=== PATIENT | male | born 1960 | race Caucasian/White ===

== ENCOUNTER → 2023-12-10 09:03 | Outpatient (REF) | payer BC, SELFPAY ==
[2023-12-10 09:48] LABS: % Basophils 1.4 % (0-2); % Eosinophils 1.2 % (0-6); % Immature Granulocytes 0.7 % (0-0.5); % Lymphocytes 18.3 % (20.5-51.1); % Monocytes 11.1 % (1.7-9.3); % Neutrophils 67.3 % (42.2-75.2); Absolute Basophils 0.1 10^3/uL (0-0.2); Absolute Eosinophils 0.1 10^3/uL (0-0.7); Absolute Lymphocytes 0.8 10^3/uL (1.2-3.4); Absolute Monocytes 0.5 10^3/uL (0.1-0.6); Absolute Neutrophils 2.9 10^3/uL (1.4-6.5); Hemoglobin 10.4 g/dL (13.0-18.0); Mean Corp Hgb Conc. 35.9 g/dL (33.0-37.0); Mean Corpuscular Hgb 49.3 pg (27.0-31.0); Mean Corpuscular Volume 137.4 fL (80.0-94.0); Mean Platelet Volume 10.7 fL (7.4-10.4); Nucleated Red Blood Cells % 7.4 % (-); Platelet Count 215 10^3/uL (130-400); Red Blood Cell Count 2.11 10^6/uL (4.70-6.10); Red Cell Dist. Width 20.6 % (11.5-14.5); White Blood Cell Count 4.3 10^3/uL (4.8-10.8)
[2023-12-10 09:54] LABS: INR 1.19
[2023-12-10 10:05] VITALS: BP 122/84; BP_SYST 58
== END ==
LOC: RADI 09:03
PROVIDERS: ATTENDING PHYSICIAN Internal Medicine Hematology & Oncology
DX: D47.3 Essential (hemorrhagic) thrombocythemia (principal); Z01.812 Encounter for preprocedural laboratory examination; Z01.818 Encounter for other preprocedural examination
CPT/HCPCS: 88305; 88311; 88312; 36415; 38222; 77012; 85025; 85610; 88313

== ENCOUNTER → 2023-12-15 06:32 | Day surgery (SDC) | payer BC, SELFPAY | LOC: GI 06:32 | PROVIDERS: ATTENDING PHYSICIAN Internal Medicine | DX: C88.4 Extranodal marginal zone B-cell lymphoma of mucosa-associated lymphoid tissue [MALT-lymphoma] (principal); K51.919 Ulcerative colitis, unspecified with unspecified complications; K43.5 Parastomal hernia without obstruction or gangrene; I85.00 Esophageal varices without bleeding; K44.9 Diaphragmatic hernia without obstruction or gangrene; K31.89 Other diseases of stomach and duodenum; Z90.49 Acquired absence of other specified parts of digestive tract | CPT/HCPCS: 44386; 43239; 88305; 88341; 88342; 88365 ==

== ENCOUNTER → 2024-01-05 07:44 | Outpatient (REF) | payer BC, SELFPAY | LOC: RAD 07:44 | PROVIDERS: ATTENDING PHYSICIAN Surgery | DX: K43.5 Parastomal hernia without obstruction or gangrene (principal); R10.31 Right lower quadrant pain | CPT/HCPCS: 74177; Q9967 ==

== ENCOUNTER 2024-05-08 07:34 | Emergency (ER) | payer MEDICARE, BC, SELFPAY ==
[2024-05-08] VITALS (9 sets, daily range): BP systolic 124–142; BP diastolic 76–89; BMI 32.1
[2024-05-08 08:37] LABS: % Basophils 1.3 % (0-2); % Eosinophils 1.1 % (0-6); % Immature Granulocytes 1.1 % (0-0.5); % Lymphocytes 12.1 % (20.5-51.1); % Neutrophils 73.4 % (42.2-75.2); Absolute Basophils 0.1 10^3/uL (0-0.2); Absolute Eosinophils 0.1 10^3/uL (0-0.7); Absolute Immature Granulocytes 0.1 10^3/uL (0-0.05); Absolute Lymphocytes 0.9 10^3/uL (1.2-3.4); Absolute Monocytes 0.8 10^3/uL (0.1-0.6); Absolute Neutrophils 5.6 10^3/uL (1.4-6.5); Hematocrit 34.9 % (39.0-52.0); Hemoglobin 11.9 g/dL (13.0-18.0); Mean Corp Hgb Conc. 34.1 g/dL (33.0-37.0); Mean Corpuscular Volume 137.9 fL (80.0-94.0); Nucleated Red Blood Cells % 1.6 % (-); Platelet Count 305 10^3/uL (130-400); Red Blood Cell Count 2.53 10^6/uL (4.70-6.10); Red Cell Dist. Width 15.9 % (11.5-14.5); White Blood Cell Count 7.6 10^3/uL (4.8-10.8)
--- NOTE | 2024-05-08 08:38 | ED.GENMED ---
History of Present Illness
General
Chief Complaint: Male Genito-Urinary Symptoms
Source: patient
Exam Limitations: none
Time Seen by Provider: 05/08/24 08:26
History of Present Illness
History of Present Illness:
64-year-old male started with congestion as he describes it in his face and congestion in his lungs a week ago. Some mild cough. No fever. The last 2 days he has had an increase shortness of breath lying flat at night. Today he also noted some
dark urine that he thought was blood. Denies chest pain no abdominal pain no change in bowels no fever. No pleuritic pain. Patient has a very complicated history.
Past History
Past History
ED Past Medical History: Cancer, Other (Ulcerative colitis status post colectomy, DVT with [place] filter) and Other (DVT)
ED Past Surgical History: Bowel resection (Colectomy with ileostomy) and Other
Social History
Tobacco: Non-smoker
Alcohol: None
Drug: None
Personal: Single
Living: with family
Review of Systems
Review of Systems
All Other Systems: Not applicable
Constitutional: Denies fever or chills
Respiratory: Denies hemoptysis
Cardiac: Denies chest pain or syncope
ABD/GI: Denies abdominal pain, bloody stools or black stools
Phy Exam
Physical Exam
Physical Exam:
GENERAL: Alert and oriented in no apparent distress
EYE: Orbits normal.
NECK: Supple. Nasal congestion when speaking
CARDIAC: Regular rate and rhythm without any obvious murmurs.
LUNGS: No respiratory distress. A few crackles in the bases bilaterally. No wheezing or rhonchi
ABDOMEN: Soft, without focal tenderness or distention
NEUROLOGICAL: Alert and oriented , grossly non-focal
SKIN: Warm and dry, no rash or lesion, no discoloration, skin intact.
MUSCULOSKELETAL: Chronic edema bilaterally. Compression stockings in place
PSYCH: Normal and appropriate interaction.
Course
Orders/Labs/Results
Orders:
Orders
05/08/24 08:21
Complete Blood Count/With Diff Urgent
Comprehensive Metabolic Panel Urgent
Pro-BNP [NT-proBNP] Urgent
Urinalysis Reflex To Culture Urgent
Date Specimen was Collected: 05/08/24
Time Specimen was Collected: 07:48
Urine Microscopic Reflex Cult Urgent
05/08/24 08:28
CXR2 [CR Chest - 2 Views ] Urgent
Comment:
Reason For Exam: shortness of breath
05/08/24 08:49
COVID-19 Antigen Urgent
Source: Nasal Swab
Troponin I Urgent
Influenza A+B Rapid Molecular Urgent
KAMRAN Source: Nasal Swab
Specimen Description:
05/08/24 10:11
CT Abd/pel Without Iv Or Oral Urgent
Comment:
Reason For Exam: hematuria
05/08/24 11:51
Cefdinir [Omnicef] 300 mg PO NOW STA
Abnormal Lab Results
05/08/24
08:21
RBC 2.53 L 10^6/uL
(4.70-6.10)
Hgb 11.9 L g/dL
(13.0-18.0)
Hct 34.9 L %
(39.0-52.0)
MCV 137.9 H fL
(80.0-94.0)
MCH 47.0 H pg
(27.0-31.0)
RDW 15.9 H %
(11.5-14.5)
Abs Immat Gran (auto) 0.1 H 10^3/uL
(0-0.05)
Absolute Lymphs (auto) 0.9 L 10^3/uL
(1.2-3.4)
Absolute Monos (auto) 0.8 H 10^3/uL
(0.1-0.6)
Immature Gran % 1.1 H %
(0-0.5)
Lymphocytes % 12.1 L %
(20.5-51.1)
Monocytes % 11.0 H %
(1.7-9.3)
Carbon Dioxide 32 H mmol/L
(22-30)
Creatinine 1.6 H mg/dL
(0.7-1.3)
Glucose 206 H mg/dl
(70-99)
Urine Ketones Trace A
(Negative)
Ur Occult Blood Reflex 3+ A
(Negative)
Urine Bilirubin 1+ A
(Negative)
Leukocyte Esterase Rfl Trace A
(Negative)
Urine Bacteria (Reflex) Few A
(Negative)
Urine Albumin (Reflex) 2+ A
(Neg - Trace)
05/08/24 08:21
05/08/24 08:21
Vital Signs
Initial and Last Documented VS:
Initial Vital Signs
Temp Pulse Resp BP Pulse Ox
98.9 F 74 16 136/86 95
05/08/24 07:43 05/08/24 07:43 05/08/24 07:43 05/08/24 07:43 05/08/24 07:43
Last Documented Vital Signs
Temp Pulse Resp BP Pulse Ox
98.9 F 67 20 142/89 92
05/08/24 07:43 05/08/24 10:13 05/08/24 10:13 05/08/24 11:58 05/08/24 11:52
MDM/Problems Addressed
Differential Diagnosis Includes:
Patient describing 2 issues that brought him to the hospital ongoing congestion as he describes it with some shortness of breath at night worse with lying flat x 1 week and possible hematuria. At this time, I do not know that I can put these 2
issues together with 1 explanation. From a congestion standpoint would entertain infectious, heart failure. PE would be in the differential. Hematuria would include kidney stone although no pain infection renal vein or artery thrombosis with his
clotting issues. Workup in progress
*Radiology
Radiology exam reviewed: radiology read reviewed (No acute findings on chest x-ray or CT. Multiple incidental findings)
*Pulse Oximetry
Patient hypoxic: no
*Critical Care Note
Total Time (30-74mins, 75-104mins- exclusive of procedures): Not Applicable
Data Reviewed
Review of Other/Old Records Reveals: Labs, Records and Testing
Update Note
Update Note:
Patient with 2 issues that appear unrelated. Mild hematuria. Possible UTI. Few bacteria trace leukocyte. No other serious explanation found. Will cover with antibiotics. As for his respiratory symptoms clearly has nasal congestion. Likely a
viral URI. No pneumonia no heart failure. Pulmonary emboli is unlikely given the patient is on Eliquis although a lower dose, and has a filter. He also does not have continual symptoms of the shortness of breath he states is worse when he is
nasally congested. Discussed the risk benefit of a CT scan with his renal insufficiency. Given the low clinical suspicion, reasonable pulse ox lack of chest pain or pleuritic pain, filter and DOAC use, we will hold on CT scan. Again risk-benefit
was explained with the patient
ED Attending Note
-
Portions of this chart may have been created with voice recognition software.� Occasional wrong word or��sound alike� substitutions may have occurred due to the inherent limitations of voice recognition software.
Discharge Plan
Departure
Patient Disposition: Home (Routine Discharge)
Date of Disposition: 05/08/24
Time of Disposition: 11:53
Patient with high blood pressure during this ER visit?: Yes
Discharge Problem:
Dyspnea/URI, Renal insufficiency, Hematuria/possible UTI
Instructions: Blood in the Urine (Hematuria), Adult (DC), Shortness of breath in adults - ED discharge instructions, BLOOD PRESSURE
Prescriptions:
New
cefdinir 300 mg capsule
300 mg PO BID 7 Days Qty: 14 0RF
No Action
rosuvastatin 20 MG tablet
20 mg PO QPM
hydroxyurea 500 MG capsule
1,000 mg PO MOTUWETHFRSA@1999
nadolol 40 MG tablet
40 mg PO HS
amlodipine 5 MG tablet
5 mg PO HS
tamsulosin 0.4 MG capsule
0.4 mg PO HS
hydroxyurea 500 mg Capsule
500 mg PO MAURICIO@1999
Xarelto 20 mg Tablet
20 mg PO HS
Xiidra 5 % Dropperette
1 drp RIGHT EYE BID
pantoprazole 40 MG tablet,delayed release (DR/EC)
40 mg PO HS
dutasteride 0.5 MG capsule
0.5 mg PO HS
Cold and Flu Medicine 2-5-325 mg Tablet
2 tab PO DAILYPRN PRN (Reason: cold/cough )
cyanocobalamin (vitamin B-12) 1,000 mcg Tablet
1,000 mcg PO QPM
folic acid 1 mg Tablet
1 mg PO QPM
mesalamine 1,000 mg Suppository
1 g NV DAILYPRN PRN (Reason: inflammation of the rectum)
cholecalciferol (vitamin D3) [Vitamin D3] 50 mcg (2,000 unit) Tablet
50 mcg PO QPM
Eliquis 2.5 mg Tablet
2.5 mg PO BID
Referrals:
Mark García MD [Family Provider] - Follow up in 2-3 days
Activity Restrictions/Additional Instructions:
Follow-up closely with your primary physician and urologist
Please return immediately with worsening shortness of breath chest pain pleuritic pain or any other concerning symptoms
You were given a copy of your CT scan report for follow-up
Interventions
Interventions:
*Risk Screen - Suicide Last Done: 05/08/24 07:43
*General Assessment Last Done: 05/08/24 07:43
*Neglect/Abuse Screening Last Done: 05/08/24 07:43
ED- Fall Risk Assessment Last Done: 05/08/24 08:00
*ED COVID-19 Vaccine History Last Done: 05/08/24 08:00
*Nursing Disposition Last Done: 05/08/24 12:07
ED-Male Genitourinary Assessment Last Done: 05/08/24 08:00
Discharge Date and Time
Discharge Date/Time: 05/08/24 12:08
Print Language: PALAUAN
[2024-05-08 08:51] LABS: Urine Albumin 2+ (Neg - Trace); Urine Bilirubin 1+ (Negative); Urine Character Clear (Clear); Urine Color Yellow; Urine Glucose Negative (Negative); Urine Ketone Trace (Negative); Urine Leukocyte Trace (Negative); Urine Nitrite Negative (Negative); Urine Occult Blood 3+ (Negative); Urine Urobilinogen Negative (Neg - 1+)
[2024-05-08 08:58] LABS: NT-proBNP 194 pg/ml
[2024-05-08 09:01] LABS: ALT (SGPT) 15 U/L (0-50); AST (SGOT) 28 U/L (17-59); Albumin 3.8 g/dl (3.5-5.0); Alkaline Phosphatase 75 U/L (38-126); Blood Urea Nitrogen 20 mg/dl (9-20); Calcium 9.1 mg/dl (8.4-10.2); Carbon Dioxide 32 mmol/L (22-30); Chloride 101 mmol/L (98-107); Estimated Creatinine Clearance 62 ml/min; Glucose 206 mg/dl (70-99); Sodium 139 mmol/L (135-145); Total Bilirubin 0.6 mg/dl (0.2-1.3); Total Protein 7.5 g/dl (6.3-8.2); eGFR 47.52
[2024-05-08 09:08] LABS: Urine Mucus Few
[2024-05-08 09:10] LABS: Urine Bacteria Few (Negative); Urine Red Blood Cell 0-2 /HPF (0-2)
[2024-05-08 09:15] LABS: COVID-19 Antigen Negative (Negative)
[2024-05-08 09:24] LABS: Troponin I < 0.012 ng/ml
--- NOTE | 2024-05-08 11:46 | EDRN ---
Dr. Kent currently at the pts bedside
[2024-05-08] MEDS: OMNICEF 300 MG PO (12:02)
== END 2024-05-08 12:08 | disposition home or self-care (01) ==
LOC: EMR 07:34
PROVIDERS: Student in an Organized Health Care Education/Training Program; EMERGENCY PHYSICIAN Emergency Medicine; FAMILY PHYSICIAN Internal Medicine
DX: J06.9 Acute upper respiratory infection, unspecified (principal); N20.0 Calculus of kidney; R31.9 Hematuria, unspecified; Z11.52 Encounter for screening for COVID-19; R06.09 Other forms of dyspnea; R03.0 Elevated blood-pressure reading, without diagnosis of hypertension
CPT/HCPCS: 99285; 71046; 74176; 80053; 81003; 81015; 83880; 84484; 85025; 87502; 87811

== ENCOUNTER 2024-05-13 16:01 | Emergency (ER) | payer MEDICARE, BC, SELFPAY ==
[2024-05-13 16:09] VITALS: BP 116/84
[2024-05-13 19:41] VITALS: BP 142/92
--- NOTE | 2024-05-13 20:35 | ED.GENMED ---
History of Present Illness
General
Chief Complaint: Sleep Disturbances
Source: patient and family
Exam Limitations: none
Time Seen by Provider: 05/13/24 20:02
History of Present Illness
History of Present Illness:
64-year-old male who presents with 4 days of difficulty sleeping. Patient does admit that he was taking Mucinex prior to that. He also reports he recently retired. He admits that he has no stress in his life and he can understand why this
happens. He goes to lay down and he [place] he gets an anxious feeling. States he has not slept well for 4 days. Melatonin worked the first night for little bit but since it has not worked.
Past History
Past History
ED Past Medical History: Cancer, Other (Ulcerative colitis status post colectomy, DVT with [place] filter) and Other (DVT)
ED Past Surgical History: Bowel resection (Colectomy with ileostomy) and Other
Social History
Tobacco: Non-smoker
Alcohol: None
Drug: None
Personal: Single
Living: with family
Phy Exam
Physical Exam
Physical Exam:
CONSTITUTIONAL Vital signs reviewed, Patient alert and oriented to person, place and time. Well-appearing
HEAD atraumatic, normocephalic.
EYES eyelids normal to inspection, Extraocular muscles intact, Conjunctiva normal, Sclera normal. False left eye
NECK normal range of motion, Trachea midline, no jugular venous distention.
RESP no respiratory distress
BACK No obvious deformities
UPPER EXTREMITY Gross Range of motion normal, gross motor strength normal
LOWER EXTREMITY Gross range of motion normal, Gross motor strength normal
NEURO Speech normal, No focal motor deficits include, Nenita coma scale 15, Memory normal, Cranial Nerves intact to screening exam.
SKIN Skin warm, dry, and normal in color.
PSYCHIATRIC Patient oriented to person place and time, Normal affect.
Course
Orders/Labs/Results
Orders:
Orders
05/13/24 20:34
Diphenhydramine [Benadryl] 50 mg PO NOW STA
Vital Signs
Initial and Last Documented VS:
Initial Vital Signs
Temp Pulse Resp BP Pulse Ox
98.2 F 62 16 116/84 95
05/13/24 16:09 05/13/24 16:09 05/13/24 16:09 05/13/24 16:09 05/13/24 16:09
Last Documented Vital Signs
Temp Pulse Resp BP Pulse Ox
98.2 F 59 16 142/92 95
05/13/24 16:09 05/13/24 19:41 05/13/24 16:09 05/13/24 19:41 05/13/24 19:41
MDM/Problems Addressed
MDM/Problems Addressed:
Acute insomnia, uncontrolled hypertension
*Pulse Oximetry
Patient hypoxic: no
*Critical Care Note
Total Time (30-74mins, 75-104mins- exclusive of procedures): Not Applicable
Data Reviewed
Source: patient and family
Further Testing Considered But Not Given:
Considered labs with patient is well-appearing although complains of insomnia at night
Patient Management
Escalation/DeEscalation of care consider admission/obs:
Well-appearing. No other complaints. Will trial Benadryl nightly. Also give very small short course of lorazepam in case Benadryl does not work.
ED Attending Note
-
Portions of this chart may have been created with voice recognition software.� Occasional wrong word or��sound alike� substitutions may have occurred due to the inherent limitations of voice recognition software.
Discharge Plan
Departure
Patient Disposition: Home (Routine Discharge)
Date of Disposition: 05/13/24
Time of Disposition: 20:39
Patient with high blood pressure during this ER visit?: Yes
Discharge Problem:
Insomnia
Instructions: Insomnia (DC), BLOOD PRESSURE
Prescriptions:
New
lorazepam 1 mg tablet
1 mg PO HS PRN (Reason: Sleep) Qty: 5 0RF
No Action
rosuvastatin 20 MG tablet
20 mg PO QPM
hydroxyurea 500 MG capsule
1,000 mg PO MOTUWETHFRSA@1999
nadolol 40 MG tablet
40 mg PO HS
amlodipine 5 MG tablet
5 mg PO HS
tamsulosin 0.4 MG capsule
0.4 mg PO HS
hydroxyurea 500 mg Capsule
500 mg PO MAURICIO@1999
Xarelto 20 mg Tablet
20 mg PO HS
Xiidra 5 % Dropperette
1 drp RIGHT EYE BID
pantoprazole 40 MG tablet,delayed release (DR/EC)
40 mg PO HS
dutasteride 0.5 MG capsule
0.5 mg PO HS
Cold and Flu Medicine 2-5-325 mg Tablet
2 tab PO DAILYPRN PRN (Reason: cold/cough )
cyanocobalamin (vitamin B-12) 1,000 mcg Tablet
1,000 mcg PO QPM
folic acid 1 mg Tablet
1 mg PO QPM
mesalamine 1,000 mg Suppository
1 g HI DAILYPRN PRN (Reason: inflammation of the rectum)
cholecalciferol (vitamin D3) [Vitamin D3] 50 mcg (2,000 unit) Tablet
50 mcg PO QPM
Eliquis 2.5 mg Tablet
2.5 mg PO BID
cefdinir 300 mg capsule
300 mg PO BID 7 Days Qty: 14 0RF
Activity Restrictions/Additional Instructions:
Please use Benadryl 50mg nightly to help with sleep. Return immediately for chest pain, shortness of breath, weakness [place], change in mentation or any other concerns.
Interventions
Interventions:
*Risk Screen - Suicide Last Done: 05/13/24 16:09
*General Assessment Last Done: 05/13/24 19:46
*ED COVID-19 Vaccine History Last Done: 05/13/24 19:46
Discharge Date and Time
Print Language: INDONESIAN
[2024-05-13] MEDS: BENADRYL 50 MG PO (20:47)
== END 2024-05-13 21:08 | disposition home or self-care (01) ==
LOC: EMR 16:01
PROVIDERS: EMERGENCY PHYSICIAN Emergency Medicine; FAMILY PHYSICIAN Podiatrist Foot & Ankle Surgery
DX: G47.00 Insomnia, unspecified (principal); I10 Essential (primary) hypertension; Z90.49 Acquired absence of other specified parts of digestive tract; Z86.718 Personal history of other venous thrombosis and embolism
CPT/HCPCS: 99283

== ENCOUNTER → 2024-08-09 09:05 | Outpatient (REF) | payer MEDICARE, BC, SELFPAY | LOC: RAD 09:05 | PROVIDERS: ATTENDING PHYSICIAN Internal Medicine Hematology & Oncology | DX: D47.3 Essential (hemorrhagic) thrombocythemia (principal); N28.89 Other specified disorders of kidney and ureter; D50.9 Iron deficiency anemia, unspecified; I89.0 Lymphedema, not elsewhere classified | CPT/HCPCS: 71260; 74177; Q9967 ==

== ENCOUNTER → 2024-10-26 10:32 | Outpatient (REF) | payer MEDICARE, BC, SELFPAY | LOC: RAD 10:32 | PROVIDERS: ATTENDING PHYSICIAN Nurse Practitioner Adult Health; FAMILY PHYSICIAN Internal Medicine | DX: D47.3 Essential (hemorrhagic) thrombocythemia (principal); N28.89 Other specified disorders of kidney and ureter; D50.9 Iron deficiency anemia, unspecified; I89.0 Lymphedema, not elsewhere classified | CPT/HCPCS: 76775 ==

== ENCOUNTER 2024-11-14 06:11 | Day surgery (SDC) | payer MEDICARE, BC, SELFPAY ==
[2024-11-14] VITALS (7 sets, daily range): BP systolic 108–128; BP diastolic 70–80; BMI 30.2
== END 2024-11-14 11:20 | disposition home or self-care (01) ==
LOC: GI 06:11
PROVIDERS: ATTENDING PHYSICIAN Internal Medicine
DX: R63.4 Abnormal weight loss (principal); R10.12 Left upper quadrant pain; K76.6 Portal hypertension; K29.70 Gastritis, unspecified, without bleeding; C85.99 Non-Hodgkin lymphoma, unspecified, extranodal and solid organ sites; I85.10 Secondary esophageal varices without bleeding; K29.50 Unspecified chronic gastritis without bleeding
CPT/HCPCS: 43239; 88305; 88365

== ENCOUNTER → 2025-01-09 13:54 | Outpatient (REF) | payer MEDICARE, OTHER, SELFPAY | LOC: RAD 13:54 | PROVIDERS: ATTENDING PHYSICIAN Specialist; FAMILY PHYSICIAN Internal Medicine | DX: N18.32 Chronic kidney disease, stage 3b (principal) | CPT/HCPCS: 76770 ==